=== PATIENT | male | born 1985 | race American Indian/Alaskan Native ===

== ENCOUNTER 2017-06-01 03:14 | Emergency (ER) | payer OTHER ==
[2017-06-01] MEDS ORDERED: CATAPRES PO ONE (06:31)
[2017-06-01 06:35] VITALS: BP 191/121
--- NOTE | 2017-06-01 07:35 | Cat Scan Report ---
FINAL REPORT EXAM: CT HEAD/BRAIN WO CON HISTORY: [place], htn TECHNIQUE: CT imaging acquired through the head without intravenous contrast. Transaxial reformations are provided. PRIORS: None. FINDINGS: The ventricles, cisterns and sulci are normal. No intraparenchymal or extra-axial mass, hemorrhage, or mass effect. Briggs and white-matter differentiation is normal. Normal spherical shape of the globes. Paranasal sinuses and mastoid air cells are clear. No skull or facial fracture visualized. IMPRESSION: No acute intracranial abnormality.
[2017-06-01 07:38] LABS: Basophils % (Auto) 0.5 % (0.0-1.8); Eosinophils % (Auto) 14.9 % (0.0-4.3); Hemoglobin 7.1 gm/dl (11.8-15.2); Lymphocytes # (Auto) 2.2 K/mm3 (1.2-5.4); Lymphocytes % (Auto) 33.3 % (13.4-35.0); Mean Corpuscular HGB Conc 34 % (32-34); Mean Corpuscular Hemoglobin 31 pg (28-32); Mean Corpuscular Volume 91 fl (84-94); Monocytes # (Auto) 0.4 K/mm3 (0.0-0.8); Monocytes % (Auto) 6.3 % (0.0-7.3); Platelet Count 129 K/mm3 (140-440); Red Blood Count 2.31 M/mm3 (3.65-5.03); Red Cell Distribution Width 14.4 % (13.2-15.2)
[2017-06-01 07:40] LABS: Albumin 2.9 g/dL (3.9-5)
[2017-06-01 07:42] LABS: INR 1.05 (0.87-1.13)
[2017-06-01 07:43] LABS: Calcium 5.7 mg/dL (8.4-10.2); Partial Thromboplastin Time 40.3 Sec. (24.2-36.6)
== END 2017-06-01 18:28 | disposition left against medical advice (07) ==
LOC: ED 03:14
DX: R11.10 Vomiting, unspecified (principal); Z53.21 Procedure and treatment not carried out due to patient leaving prior to being seen by health care provider
CPT/HCPCS: 36415; 70450; 80053; 85025; 85610; 85730